=== PATIENT | male | born 1995 | race Two or more races ===

== ENCOUNTER 2018-12-13 08:29 | Emergency (ER) | payer OTHER ==
[2018-12-13 08:44] VITALS: BP 137/70
[2018-12-13] MEDS ORDERED: IBUPROFEN 800 MG TABLET PO STA (09:13)
[2018-12-13] MEDS ORDERED: CYCLOBENZAPRINE 10 MG TABLET PO STA (09:13)
--- NOTE | 2018-12-13 09:16 | ED Physician Documentation ---
PD HPI BACK PAIN - Stated complaint Stated Complaint: BACK PX - Chief complaint Chief Complaint: Back Pain - History obtained from History obtained from: Patient, Family - History of Present Illness Timing - onset: Yesterday Timing - duration: Days (1) Timing - details: Gradual onset Pain level max: 6 Pain level now: 3 Location: Mid, Lower, Right, Left Quality: Pain, Spasm. 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 No: Trauma, Anticoagulated, Cancer, IVDA Similar symptoms before: Has not had sx before Recently seen: Not recently seen Review of Systems Constitutional: denies: Fever, Chills Ears: denies: Ear pain Nose: denies: Rhinorrhea / runny nose, Congestion GI: denies: Vomiting, Diarrhea : denies: Incontinent Skin: denies: Rash Musculoskeletal: denies: Neck pain Neurologic: denies: Focal weakness, Numbness PD PAST MEDICAL HISTORY - Past Medical History Past Medical History: No - Past Surgical History Past Surgical History: No - Present Medications Home Medications: Ambulatory Orders Medication Instructions Recorded Confirmed Cyclobenzaprine [Flexeril] 10 mg PO TID PRN #20 tablet 12/13/18 Ibuprofen [Advil] PRN MDD back pain 12/13/18 Ibuprofen [Motrin] 800 mg PO Q8H PRN #30 tablet 12/13/18 - Allergies Allergies/Adverse Reactions: Allergies Allergy/AdvReac Type Severity Reaction Status Date / Time Sulfa (Sulfonamide Allergy Unknown Verified 12/13/18 08:44 Antibiotics) - Social History Does the pt smoke?: No Smoking Status: Never smoker Does the pt drink ETOH?: Yes Does the pt have substance abuse?: No - Immunizations Immunizations are current?: Yes PD ED PE NORMAL - Vitals Vital signs reviewed: Yes - General General: Alert and oriented X 3, No acute distress, Well developed/nourished - HEENT HEENT: PERRL, Moist mucous membranes - Neck Neck: Supple, no meningeal sign - Cardiac Cardiac: RRR, Strong equal pulses - Respiratory Respiratory: No respiratory distress, Clear bilaterally - Abdomen Abdomen: Soft, Non tender, Non distended - Back Back: No spinal TTP, Other (No step-off or deformity. Paraspinal spasm bilateral low lumbar) - Derm Derm: Warm and dry - Extremities Extremities: Other (Normal bilateral lower extremity patellar and ankle jerk reflexes. Normal great toe extension bilaterally. no saddle anesthesia) - Neuro Neuro: Alert and oriented X 3, No motor deficit, No sensory deficit - Psych Psych: Normal mood, Normal affect Results - Vitals Vitals: Vital Signs - 24 hr 12/13/18 12/13/18 08:42 09:30 Temperature 36.5 C Heart Rate 62 84 Respiratory 16 18 Rate Blood Pressure 137/70 H O2 Saturation 96 Oxygen O2 Source Room air PD MEDICAL DECISION MAKING - ED course Complexity details: considered differential (No cauda equina, no spinal epidural abscess, no fracture, no aortic dissection or evidence of aneursym rupture), d/w patient ED course: 23-year-old male with a lumbar strain. Will continue supportive care and follow-up with his doctor. No evidence of cauda equina, epidural abscess. Ambulating well. Normal gait. Patient counseled regarding signs and symptoms for which I believe and urgent re-evaluation would be necessary. Patient with good understanding of and agreement to plan and is comfortable going home at this time This document was made in part using voice recognition software. While efforts are made to proofread this document, sound alike and grammatical errors may occur. Departure - Departure Disposition: 01 Home, Self Care Clinical Impression: Back muscle spasm Condition: Good Instructions: ED Spasm Back No Trauma Follow-Up: Joseph Lewis MD [Primary Care Provider] - Within 1 week Prescriptions: Cyclobenzaprine [Flexeril] 10 mg PO TID PRN #20 tablet PRN Reason: Spasms Ibuprofen [Motrin] 800 mg PO Q8H PRN #30 tablet PRN Reason: PAIN &/OR FEVER Comments: Return if you worsen. This should improve over the next 2 days. Follow-up with your doctor for further care. Do not drive or operate heavy machinery while taking the Flexeril. Forms: Activity restrictions Discharge Date/Time: 12/13/18 09:30
== END 2018-12-13 09:30 | disposition home or self-care (01) ==
LOC: ED 08:29
DX: M62.830 Muscle spasm of back (principal); S39.012A Strain of muscle, fascia and tendon of lower back, initial encounter; X58.XXXA Exposure to other specified factors, initial encounter
CPT/HCPCS: 99282; 99283; A9270

== ENCOUNTER 2019-11-27 23:15 | Emergency (ER) | payer OTHER ==
[2019-11-28] MEDS ORDERED: SODIUM CHLORIDE 0.9% 1,000 ML IV ONE ×2 (01:50→02:59)
[2019-11-28] MEDS ORDERED: ONDANSETRON 4 MG/2 ML VIAL IVP STA (01:52)
[2019-11-28 01:54] LABS: BASOPHILS % (AUTO) 0.5 %; EOSINOPHILS % (AUTO) 0.5 %; LYMPHOCYTES # (AUTO) 0.2 10^3/uL (1.5-3.5); LYMPHOCYTES % (AUTO) 2.6 %; MEAN CORPUSCULAR HEMOGLOBIN 30.9 pg (27.0-31.0); MEAN CORPUSCULAR HGB CONC 34.3 g/dL (32.0-36.0); MEAN CORPUSCULAR VOLUME 90.2 fL (80.0-94.0); MEAN PLATELET VOLUME 10.4 fL (7.4-11.4); MONOCYTES # (AUTO) 0.6 10^3/uL (0.0-1.0); MONOCYTES % (AUTO) 6.6 %; NEUTROPHILS # (AUTO) 7.5 10^3/uL (1.5-6.6); NEUTROPHILS % (AUTO) 89.3 %; PLT - PLATELET COUNT 218 10^3/uL (130-450); RED CELL DISTRIBUTION WIDTH 11.2 % (12.0-15.0); WHITE BLOOD COUNT 8.4 x10^3/uL (4.8-10.8)
[2019-11-28] MEDS ORDERED: KETOROLAC 30 MG/ML VIAL IVP STA (01:54)
[2019-11-28 02:00] LABS: BILIRUBIN,URINE NEGATIVE (NEGATIVE); GLUCOSE, URINE (UA) NEGATIVE (NEGATIVE); KETONES,URINE (UA) 15 mg/dL (NEGATIVE); LEUKOCYTE ESTERASE, URINE NEGATIVE (NEGATIVE); NITRITE,URINE NEGATIVE (NEGATIVE); OCCULT BLOOD,URINE NEGATIVE (NEGATIVE); PH,URINE >=9.0 PH (5.0-7.5); PROTEIN,URINE 30 mg/dL (NEGATIVE); UROBILINOGEN,URINE 0.2 (NORMAL) E.U./dL (NORMAL)
[2019-11-28 02:01] LABS: CLARITY,URINE CLEAR (CLEAR)
[2019-11-28 02:06] LABS: BACTERIA,URINE None Seen /HPF (None Seen); RBC,URINE None Seen /HPF (0-5); SQUAMOUS EPITHELIAL CELL,UR NONE SEEN (<= Few)
[2019-11-28 02:09] LABS: ALBUMIN 4.6 g/dL (3.2-5.5); ALBUMIN/GLOBULIN RATIO 1.4 (1.0-2.2); BILIRUBIN,TOTAL 1.4 mg/dL (0.2-1.0); CALCIUM 9.7 mg/dL (8.5-10.3); TOTAL PROTEIN 7.8 g/dL (6.7-8.2)
[2019-11-28] MEDS ORDERED: ACETAMINOPHEN 500 MG TABLET PO STA (02:48)
--- NOTE | 2019-11-28 02:59 | ED Physician Documentation ---
PD HPI ABD PAIN - Stated complaint Stated Complaint: SOA/VOMITING/FRANCO - Chief complaint Chief Complaint: Abd Pain - History obtained from History obtained from: Patient - History of Present Illness Timing - onset: Other (1830 PM) Timing - details: Abrupt onset Quality: Cramping, Aching Radiation: No: Chest Improved by: No: Eating Worsened by: No: Eating Associated symptoms: Nausea, Vomiting, Diarrhea. No: Fever, Hematemesis, Constipation, Dizzy - Treatment prior to arrival Treatment prior to arrival: 24 YEAR OLD MALE PRESENTS TO THE EMERGENCY DEPARTMENT BECAUSE OF ABDOMINAL CRAMPS, VOMITING AND DIARRHEA. PATIENT REPORTED THAT HE WAS AT HOME WHEN HE SUDDENLY HAD TO GO TO THE BATHROOM. HE VOMITED AND HAD DIARRHEA. HE HAD MULTIPLE TIMES OF EACH SINCE AND WAS UNABLE TO KEEP ANYTHING DOWN. HE REPORTED OF LOWER ABDOMINAL PAIN WHICH HAS SINCE GONE AWAY. HE DENIES ANY FEVER, CHILLS, CONSTIPATION, DYSURIA, FLANK PAIN, URINARY FREUQENCY OR URGENCY. Review of Systems Constitutional: denies: Fever, Chills Eyes: denies: Loss of vision Ears: denies: Loss of hearing Nose: denies: Rhinorrhea / runny nose Cardiac: denies: Chest pain / pressure Respiratory: denies: Cough GI: reports: Abdominal Pain, Nausea, Vomiting, Diarrhea : denies: Dysuria Skin: denies: Rash Musculoskeletal: denies: Neck pain, Back pain, Extremity pain, Joint pain PD PAST MEDICAL HISTORY - Past Medical History Past Medical History: No Cardiovascular: None Respiratory: None Neuro: None Endocrine/Autoimmune: None GI: None - Past Surgical History Past Surgical History: No - Present Medications Home Medications: Ambulatory Orders Medication Instructions Recorded Confirmed Ondansetron Odt [Zofran] 4 mg TL Q6H PRN #15 tablet 11/28/19 - Allergies Allergies/Adverse Reactions: Allergies Allergy/AdvReac Type Severity Reaction Status Date / Time Sulfa (Sulfonamide Allergy Unknown Verified 11/28/19 01:34 Antibiotics) - Social History Does the pt smoke?: No Smoking Status: Never smoker Does the pt drink ETOH?: Yes Does the pt have substance abuse?: No - Immunizations Immunizations are current?: Yes - POLST Patient has POLST: No PD ED PE NORMAL - General General: Alert and oriented X 3, Other - HEENT HEENT: Atraumatic - Neck Neck: Supple, no meningeal sign, No bony TTP - Cardiac Cardiac: Other (TACHYCARDIAC) - Respiratory Respiratory: No respiratory distress, Clear bilaterally - Abdomen Abdomen: Normal bowel sounds - Back Back: No CVA TTP - Derm Derm: Normal color, Warm and dry - Neuro Neuro: Alert and oriented X 3 Eye Opening: Spontaneous Motor: Obeys Commands Verbal: Oriented GCS Score: 15 Results - Vitals Vitals: Vital Signs - 24 hr 11/27/19 11/28/19 11/28/19 23:34 01:37 02:18 Temperature 36.8 C 37.4 C Heart Rate 114 H 99 105 H Respiratory 24 18 14 Rate Blood Pressure 145/58 H 148/65 H 135/63 H O2 Saturation 100 100 98 11/28/19 11/28/19 02:49 03:30 Temperature 36.8 C Heart Rate 105 H 105 H Respiratory 15 15 Rate Blood Pressure 111/57 L 109/51 L O2 Saturation 97 97 Oxygen O2 Source Room air - Labs Labs: Laboratory Tests 11/28/19 11/28/19 11/28/19 01:47 01:47 01:55 WBC 8.4 RBC 5.50 Hgb 17.0 Hct 49.6 MCV 90.2 MCH 30.9 MCHC 34.3 RDW 11.2 L Plt Count 218 MPV 10.4 Neut # (Auto) 7.5 H Lymph # (Auto) 0.2 L [place] # (Auto) 0.6 Eos # (Auto) 0.0 Baso # (Auto) 0.0 Absolute Nucleated RBC 0.00 Nucleated RBC % 0.0 Sodium 139 Potassium 4.1 Chloride 101 Carbon Dioxide 26 Anion Gap 12.0 BUN 21 H Creatinine 1.0 Estimated GFR (MDRD) 90 Glucose 145 H Calcium 9.7 Total Bilirubin 1.4 H AST 22 ALT 27 Alkaline Phosphatase 45 Total Protein 7.8 Albumin 4.6 Globulin 3.2 Albumin/Globulin Ratio 1.4 Lipase 25 Urine Color YELLOW Urine Clarity CLEAR Urine pH >=9.0 H Ur Specific [place] 1.010 Urine Protein 30 H Urine Glucose (UA) NEGATIVE Urine Ketones 15 H Urine Occult Blood NEGATIVE Urine Nitrite NEGATIVE Urine Bilirubin NEGATIVE Urine Urobilinogen 0.2 (NORMAL) Ur Leukocyte Esterase NEGATIVE Urine RBC None Seen Urine WBC 0-3 Ur Squamous Epith Cells NONE SEEN Urine Bacteria None Seen Ur Microscopic Review INDICATED Urine Culture Comments NOT INDICATED PD MEDICAL DECISION MAKING - ED course Complexity details: re-evaluated patient, d/w patient, d/w family ED course: 24 YEAR OLD MALE PRESENTED WITH VOMITING AND DIARRHEA SINCE 18:30. PATIENT REMAINED HEMODYNAMICALLY STABLE. PATIENT HAD NO FURTHER VOMITING AFTER ZOFRAN. DIARRHEA HAS ALSO RESOLVED. HE WAS GIVEN TYLENOL FOR HIS HEADACHE WHICH STARTED AFTER MULTIPLE EPISODES OF VOMITING AND DIARRHEA. HE WAS GIVEN TYLENOL FOR HIS HEADACHE AND IT IMPROVED. REPEAT ABDOMINAL EXAM DEMONSTRATED A SOFT ABDOMEN WITHOUT REBOUND OR GUARDING. AT THIS TIME, PATIENT WAS STABLE TO BE DISCHARGED. HE HAS NO TENDERNESS TO PALPATION OF THE MCBURNEY'S POINT. CLINICAL SUSPICION OF APPENDIX IS LOW AT THIS TIME. DIAGNOSIS AND TREATMENT PLAN WERE DISCUSSED. OUTPATIENT FOLLOW UP WITH PCP IN 3 DAYS WAS RECOMMENDED. STRICT RETURN INSTRUCTIONS WERE GIVEN. PATIENT WAS DISCHARGED IN STABLE CONDITION. Departure - Departure Disposition: 01 Home, Self Care Clinical Impression: Vomiting, Diarrhea Condition: Stable Instructions: ED Diet Vomiting Diarrhea, ED Nausea Vomiting, ED Vomiting Diarrhea Nonspecific Ad Follow-Up: Joseph Lewis MD [Primary Care Provider] - Within 3 Days Prescriptions: Ondansetron Odt [Zofran] 4 mg TL Q6H PRN #15 tablet PRN Reason: Nausea / Vomiting Forms: Activity restrictions Discharge Date/Time: 11/28/19 03:48
[2019-11-28 03:32] VITALS: BP 109/51
== END 2019-11-28 03:48 | disposition home or self-care (01) ==
LOC: ED 23:15
DX: R11.2 Nausea with vomiting, unspecified (principal); R19.7 Diarrhea, unspecified; R51 Headache; R00.0 Tachycardia, unspecified; Z88.2 Allergy status to sulfonamides
CPT/HCPCS: 36415; 80053; 81001; 83690; 85025; 96361; 96374; 96375; 99283; 99284; A9270; 81003; 87086